=== PATIENT | female | born 1995 | race Caucasian/White ===

== ENCOUNTER 2020-03-24 13:48 | Emergency (ER) | payer BC, OTHER ==
[2020-03-24 14:12] VITALS: BP 114/75; PULSE 81; RESP 16; TEMP 99.1
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
[2020-03-24 22:07] LABS: HIV 2 AB Non-Reactive (Non-Reactive); HIV AB P24 Non-Reactive (Non-Reactive); HIV P24 AG Non-Reactive (Non-Reactive)
[2020-03-25 04:35] LABS: Hepatitis B Surface AB- Quant 10.1 mIU/mL; Hepatitis B Surface Antibody Equivocal (Non-Reactive); Hepatitis C IgG Antibody Non-Reactive (Non-Reactive)
== END 2020-03-24 14:51 | disposition home or self-care (01) ==
LOC: EC 13:48
DX: S61.459A Open bite of unspecified hand, initial encounter (principal); Z88.0 Allergy status to penicillin; Z88.1 Allergy status to other antibiotic agents; W50.3XXA Accidental bite by another person, initial encounter; Y92.69 Other specified industrial and construction area as the place of occurrence of the external cause; Y99.0 Civilian activity done for income or pay
CPT/HCPCS: 36415; 86706; 86803; 87390; 99283

== ENCOUNTER → 2021-05-29 | Outpatient (CLI) | payer BC ==
--- NOTE | 2021-05-29 11:34 | ECHOF ---
Referral Reason:R07.9 Chest pain MEASUREMENTS -------- HEIGHT: 154.9 cm WEIGHT: 58.1 kg BP: RVIDd: 2.2 cm (< 3.3) IVSd: 1.0 cm (0.6 - 1.1) LVIDd: 4.3 cm (3.9 - 5.3) LVPWd: 1.0 cm (0.6 - 1.1) IVSs: 1.5 cm LVIDs: 2.6 cm LVPWs: 1.4 cm LAESV Index (A-L): 22.42 ml/m Ao Diam: 2.6 cm (2.0 - 3.7) AV Cusp: 1.9 cm (1.5 - 2.6) LA Diam: 2.6 cm (2.7 - 3.8) MV EXCURSION: 15.792 mm (> 18.000) MV EF SLOPE: 189 mm/s (70 - 150) EPSS: 0.6 cm MV E Harsh: 0.60 m/s MV DecT: 147 ms MV A Harsh: 0.43 m/s MV E/A Ratio: 1.40 RAP: 5.00 mmHg RVSP: 13.79 mmHg FINDINGS -------- Sinus rhythm. This was a technically good study. The left ventricular size is normal. Left ventricular wall thickness is normal. Overall left vent ricular systolic function is normal with, an EF between 55 - 60 %. The diastolic filling pattern is normal for the age of the patient 5.67. The right ventricle is normal in size. The left atrial size is normal. Normal LA size by volume 22+/-6 ml/m2. The right atrial size is normal. The aortic valve is trileaflet and appears structurally normal. The mitral valve is normal. Mild mitral regurgitation is present. The tricuspid valve appears structurally normal. Trace tricuspid regurgitation present. Right anca tricular systolic pressure is normal at < 35 mmHg. There is no pulmonic regurgitation present. The aortic root size is normal. Normal inferior vena cava with normal inspiratory collapse consistent with estimated right atrial pre ssure of 5 mmHg. There is no pericardial effusion. CONCLUSIONS -------- 1. The left ventricular size is normal. 2. Left ventricular wall thickness is normal. 3. Overall left ventricular systolic function is normal with, an EF between 55 - 60 %. 4. The diastolic filling pattern is normal for the age of the patient 5.67 5. Mild mitral regurgitation is present. 6. Trace tricuspid regurgitation present. 7. There is no pericardial effusion. LEADING FIREFIGHTER: Oxana Jaimes RDCS
--- NOTE | 2021-05-29 12:14 | P.STRESS ---
- Stress Test Note Stress Test Results/Findings: Exam Performed: stress echo exercise Exam Date: 05/29/21 Reason for Exam: Chest Pressure Height: 5 ft 1 in Weight: 58.06 kg Protocol: Arnie Stage: 4 Duration of Exercise: 12:12 Resting Heart Rate: 84 Resting Blood Pressure: 135/93 Maximum Achieved Heart Rate: 184 Maximum Achieved Blood Pressure: 196/79 85% PMHR: 165 100% PMHR: 194 METS: 12.1 Technologist Comment: Stress Test Results/Findings: Patient underwent exercise stress echo with a Arnie protocol treadmill stress test. Patient exercised into Stage 4 for a total of 12 minutes and 12 seconds reaching a total of 12.1 METS. Patient's maximum heart rate was 184 which represented 95 % age-predicted maximum heart rate. Patient did have a 1 out of 10 chest pressure noted in stage I which improved towards the end of his exercise. Stress EKG portion: At baseline patient's EKG showed normal sinus rhythm, normal axis, no signific ant ST or T-wave abnormalities. At peak exercise, EKG showed no significant change from baseline. Stress echo portion: 2-D echocardiogram was performed in the parasternal long, personal short, apical 2 and apical four-chamber views at rest, peak exercise and in recovery. At baseline, echocardiogram showed left ventricular ejection fraction 55-60% without wall motion abnormalities. With peak exercise, echocardiogram shows improvement in left ventricular ejection fraction, increase contractility, decrease in left ventricular end systolic dimension without wall motion abnormalities consistent with a normal response to exercise. Conclusions: 1. Normal EKG and echo response to exercise without evidence of inducible ischemia. 2. Chest pressure noted with exercise in Stage 1. Clinical correlation recommended however appeared to improve at the end of exercise. 3. Good exercise capacity. 4. Normal EF 55-60%
== END | disposition home or self-care (01) ==
LOC: RADECHMAIN 08:17
PROVIDERS: ATTEND Family Medicine
DX: R07.89 Other chest pain (principal)
CPT/HCPCS: 93225; 93226; 93306; 93351

== ENCOUNTER → 2021-08-16 | Outpatient (CLI) | payer BC | END | disposition home or self-care (01) | LOC: LABWHC1 14:23 | PROVIDERS: ATTEND Family Medicine | DX: J45.20 Mild intermittent asthma, uncomplicated (principal) | CPT/HCPCS: 36415 ==

== ENCOUNTER 2024-06-11 18:19 | Inpatient (IN) | payer BC ==
[2024-06-11] MEDS ORDERED: CARBOPROST TROMETHAMINE 250 MCG/ML 1 ML AMP IM PRN (18:57)
[2024-06-11] MEDS ORDERED: TERBUTALINE 1 MG/ML VIAL SQ PRN (18:57)
[2024-06-11] MEDS ORDERED: miSOPROStoL 200 MCG TAB RECTAL PRN (18:57)
[2024-06-11] MEDS ORDERED: TRANEXAMIC 1,000 MG/100ML-NACL 1,000 MG in EMPTY BAG 1 BAG IV PRN (18:57)
[2024-06-11] MEDS ORDERED: miSOPROStoL 200 MCG TAB PO PRN (18:57)
[2024-06-11] MEDS ORDERED: OXYTOCIN 10 UNIT/ML 1 ML VIAL IM PRN (18:57)
[2024-06-11] MEDS ORDERED: METHYLERGONOVINE 0.2 MG/ML 1 ML AMP IM PRN (18:57)
[2024-06-11 19:32] LABS: Basophils % (A) 0 %; Eosinophils # (A) 0.1 k/uL (0-0.7); Eosinophils % (A) 1 %; HCT 35.9 % (34.0-46.0); HGB 12.1 gm/dL (11.4-16.0); Lymphocytes # (A) 2.3 k/uL (1.0-4.8); Lymphocytes % (A) 18 %; MCH 31.9 pg (25.0-35.0); MCHC 33.7 g/dL (31.0-37.0); MCV 94.6 fL (80.0-100.0); Mean Platelet Volume 8.6; Monocytes # (A) 0.5 k/uL (0-1.0); Monocytes % (A) 4 %; Neutrophils # (A) 9.7 k/uL (1.3-7.7); Neutrophils % (A) 76 %; Platelet Count 180 k/uL (150-450); RBC 3.79 m/uL (3.80-5.40); RDW 12.9 % (11.5-15.5); WBC 12.6 k/uL (3.8-10.6)
[2024-06-11] MEDS: LACTATED RINGERS 1,000 ML IV SCH (19:45)
[2024-06-11] MEDS ORDERED: BUTORPHANOL 1 MG/ML 1 ML VIAL IV PRN (19:47)
[2024-06-12] MEDS ORDERED: ROPIVACAINE 5 MG/ML 30 ML VIAL ONE (01:28)
[2024-06-12] MEDS ORDERED: fentaNYL (PF) 50 MCG/ML 5 ML AMP ONE (01:28)
[2024-06-12] MEDS ORDERED: SODIUM CHLORIDE 0.9% 250 ML BAG ONE (01:28)
[2024-06-12] MEDS: LACTATED RINGERS 500 ML IV SCH (01:54)
--- NOTE | 2024-06-12 05:33 | P.HPOB ---
History of Present Illness H&P Date: 06/12/24 Chief Complaint: 39-6/7 weeks, spontaneous rupture of membranes, labor The patient is a 29-year-old 1 para 0 admitted at 39-5/7, now 39-6/7 weeks, with spontaneous rupture of membranes for clear fluid. Her has been uncomplicated and group B strep status is negative. On labor delivery, all signs are reassuring with a category 1 heart rate tracing. Obstetrical history: 1 para 0 with current statistics listed in history of present illness. EDC of 06/13/2024 was established by last menstrual period and confirmed by a 9-week ultrasound. Laboratory workup demonstrates a blood type of O+ with a negative antibody screen. Rubella status is immune. The remainder of the laboratory workup was within normal limits. 1 hour Glucola was normal and group B strep status is negative. Gynecologic history: Unremarkable with no history of any infections to include STDs. Review of Systems Review of systems is confined to history of present illness. Past Medical History Past Medical History: No Reported History History of Any Multi-Drug Resistant Organisms: None Reported Past Surgical History: Tonsillectomy Additional Past Surgical History / Comment(s): wisdom teeth Past Anesthesia/Blood Transfusion Reactions: No Reported Reaction Smoking Status: Never smoker Past Alcohol Use History: Occasional Past Drug Use History: None Reported Medications and Allergies Home Medications Medication Instructions Recorded Confirmed Type Aspirin [Adult Low Dose Aspirin EC] 81 mg PO DAILY 06/11/24 06/11/24 History Pnv 11/Iron Fum/Folic Acid/Om3 1 each PO DAILY 06/11/24 06/11/24 History [Wesnate Dha Softgel] Allergies Allergy/AdvReac Type Severity Reaction Status Date / Time amoxicillin [From Augmentin] Allergy Swelling Verified 03/24/20 14:12 azithromycin [From Zithromax] Allergy Swelling Verified 06/11/24 18:34 clavulanic acid Allergy Swelling Verified 03/24/20 14:12 [From Augmentin] Penicillins Allergy Swelling Verified 03/24/20 14:12 sulfamethoxazole Allergy Swelling Verified 06/11/24 18:34 [From Bactrim] trimethoprim [From Bactrim] Allergy Swelling Verified 06/11/24 18:34 Exam Vital Signs Temp Pulse Resp BP Pulse Ox 06/11/24 18:50 97.6 F 86 18 134/84 98 Intake and Output 06/11/24 06/11/24 06/12/24 14:59 22:59 06:59 Other: # Voids 2 Weight 77.111 kg In general, this is a well-developed, well-nourished white female in no acute distress. Her heart has a regular rhythm and rate without murmur. Her lungs are clear to auscultation bilateral in all ríos. Her abdomen is gravid, nondistended, has normal active bowel sounds, soft, nontender, and without any palpable masses aside from uterine fundus. Her extremities are without any cyanosis, clubbing, or significant edema and are nontender to palpation bilaterally. Digital cervical examination at the time of presentation demonstrated her cervix to be 3 cm dilated, 60% effaced, the vertex and presentation at -2 station. Spontaneous rupture of membranes was confirmed. Results Result Diagrams: 06/11/24 19:20 Abnormal Lab Results - Last 24 Hours (Table) 06/11/24 Range/Units 19:20 WBC 12.6 H (3.8-10.6) k/uL RBC 3.79 L (3.80-5.40) m/uL Neutrophils # 9.7 H (1.3-7.7) k/uL Assessment and Plan (1) Active labor at term Current Visit: Yes Status: Acute Code(s): [id number] - SNOMED Code(s): 56184031 (2) Spontaneous rupture of membranes Current Visit: Yes Status: Acute Code(s): KNN4680 - SNOMED Code(s): 227186833 Plan: The patient has been admitted for active management of labor. Close maternal and surveillance have been practiced. She requested and has an epidural catheter in place for analgesia. I would anticipate normal spontaneous vaginal delivery shortly.
[2024-06-12] MEDS: LIDOCAINE 0.5% (PF) 5 MG/ML (50 ML SDV) SQ PRN (09:40)
--- NOTE | 2024-06-12 09:48 | P.PROBDLV ---
Vaginal Delivery Note - . Vaginal Delivery Note: 29-year-old 1 para 0 at 39-6/7 weeks that presented last evening with complaints of rupture of membranes around 1730. Patient states it was clear in nature. Patient was noting contractions every 2 to 3 minutes at that time. Patient was admitted and made good progress through the evening. Patient did receive an epidural for analgesia. Patient progressed to complete with no urge to push. Patient commenced pushing and with excellent maternal effort had a normal spontaneous vaginal delivery of a viable male , weight of 7 pounds 10 ounces, Apgars of 9 and 9 at 1 and 5 minutes respectively. After 2-minute delay the umbilical cord was doubly clamped and cut. Spontaneous cry was noted at . was handed to the maternal abdomen. Placenta was delivered spontaneously intact with a three-vessel cord being noted. On inspection the patient's vaginal vault a superficial vaginal mucosa first- degree laceration was appreciated. This laceration was injected with lidocaine and repaired with 3-0 Rapide in a running locked fashion. Hemostasis was noted after repair. All counts were noted be correct x 2 at the end of the delivery. Patient and tolerated delivery well and are resting comfortably.
[2024-06-12] MEDS ORDERED: BENZOCAINE/MENTHOL SPRAY 1 GM/SPRAY AEROSOL TOPICAL PRN (09:50)
[2024-06-12] MEDS ORDERED: diphenhydrAMINE 50 MG/ML 1 ML VIAL IVP PRN ×2 (09:50)
[2024-06-12] MEDS ORDERED: SIMETHICONE 80 MG CHEWABLE PO PRN (09:50)
[2024-06-12] MEDS ORDERED: HYDROCORTISONE 2.5% RECTAL CREAM 30 GM TUBE RECTAL PRN (09:50)
[2024-06-12] MEDS ORDERED: LANOLIN CREAM 1 GM TUBE TOPICAL PRN (09:50)
[2024-06-12] MEDS ORDERED: diphenhydrAMINE 50 MG CAP PO PRN (09:50)
[2024-06-12] MEDS ORDERED: ZOLPIDEM 5 MG TAB PO PRN (09:50)
[2024-06-12] MEDS ORDERED: diphenhydrAMINE 25 MG CAP PO PRN (09:50)
[2024-06-12] MEDS: ACETAMINOPHEN TAB 500 MG TAB PO SCH (10:58)
[2024-06-12] MEDS: IBUPROFEN 800 MG TAB PO SCH (15:28)
[2024-06-12] MEDS: SENNOSIDES-DOCUSATE SODIUM 1 EACH TAB PO SCH (19:54)
[2024-06-12 19:59] VITALS: RESP 16
[2024-06-13] MEDS: PRENATAL VIT-IRON-FOLIC ACID 1 EACH TABLET PO SCH (08:10)
--- NOTE | 2024-06-13 11:56 | P.PNOBGVD ---
Subjective - Subjective Principal diagnosis: S/P NVD PPD #1 Patient reports: Reports appetite normal, Reports voiding normally, Reports pain well controlled, Reports ambulating normally : other (on antibiotics in the nursery) Objective - Latest Vital Signs Latest vital signs: Vital Signs Temp Pulse Resp BP 06/13/24 08:00 97.9 F 85 16 131/76 06/13/24 00:00 98.4 F 89 16 122/71 06/12/24 19:56 97.7 F 81 16 119/83 06/12/24 16:00 98.1 F 88 14 127/80 Intake and Output 06/12/24 06/13/24 06/13/24 22:59 06:59 14:59 Other: # Voids 2 2 2 - Exam Lungs: bilateral: normal Chest: Normal S1, Normal S2 Extremities: Present: normal Abdomen: Present: normal appearance, soft Uterus: Present: normal, firm Assessment and Plan (1) Status post normal vaginal delivery Current Visit: Yes Status: Acute Code(s): [id number] - SNOMED Code(s): 798000150 Plan: 1. cont pp care
--- NOTE | 2024-06-14 10:59 | P.DS ---
Providers Date of admission: 06/11/24 18:47 Expected date of discharge: 06/14/24 Attending physician: Emmett Velázquez Primary care physician: Stated None - Discharge Diagnosis(es) (1) Status post normal vaginal delivery Current Visit: Yes Status: Acute Hospital Course: Presented in active labor with spontaneous rupture of membranes. She underwent a normal vaginal delivery. course she had 1 fever but then no elevation white blood cell count and had no signs of infection. Her baby did have a high white blood cell count and some fevers so was sent to the nursery where he is getting blood cultures and antibiotics. We discharged home day #2 in stable condition to follow-up with Dr. Hardwick in 6 weeks. Plan - Discharge Summary New Discharge Prescriptions: New Ibuprofen [Motrin] 800 mg PO Q8H #20 tab No Action Pnv 11/Iron Fum/Folic Acid/Om3 [Wesnate Dha Softgel] 1 each PO DAILY Aspirin [Adult Low Dose Aspirin EC] 81 mg PO DAILY Discharge Medication List Aspirin [Adult Low Dose Aspirin EC] 81 mg PO DAILY 06/11/24 [History] Pnv 11/Iron Fum/Folic Acid/Om3 [Wesnate Dha Softgel] 1 each PO DAILY 06/11/24 [History] Ibuprofen [Motrin] 800 mg PO Q8H #20 tab 06/14/24 [Rx] Follow up Appointment(s)/Referral(s): Annabelle Hardwick DO [Doctor of Osteopathic Medicine] - 6 Weeks Discharge Disposition: HOME SELF-CARE
[2024-06-14 16:30] VITALS: BP 138/84; PULSE 72; TEMP 98.1
== END 2024-06-14 17:50 | disposition home or self-care (01) | DRG 807 ==
LOC: FBPOP 18:19 → 4FBP 18:47
PROVIDERS: ADMIT Obstetrics & Gynecology Obstetrics; ATTEND Obstetrics & Gynecology
PROC: 10E0XZZ Delivery of Products of Conception, External Approach (ICD-10-PCS; principal; 2024-06-12)
PROC: 0HQ9XZZ Repair Perineum Skin, External Approach (ICD-10-PCS; 2024-06-12)
DX: O42.02 Full-term premature rupture of membranes, onset of labor within 24 hours of rupture (principal); Z37.0 Single live birth; O70.0 First degree perineal laceration during delivery; Z3A.39 39 weeks gestation of pregnancy; Z79.82 Long term (current) use of aspirin; Z88.1 Allergy status to other antibiotic agents; Z88.0 Allergy status to penicillin
CPT/HCPCS: 59025; 84112; 85025; 86850; 86900; 86901; 99213